=== PATIENT | female | born 1960 | race Two or more races ===

== ENCOUNTER → 2020-05-18 | Outpatient (CLI) | payer SELFPAY | END | disposition home or self-care (01) | LOC: LABWHC1 16:06 | PROVIDERS: ATTEND Emergency Medicine | DX: Z20.822 Contact with and (suspected) exposure to COVID-19 (principal) | CPT/HCPCS: U0003; C9803 ==

== ENCOUNTER → 2020-06-13 | Outpatient (CLI) | payer SELFPAY | END | disposition home or self-care (01) | LOC: LABWHC1 17:14 | PROVIDERS: ATTEND Emergency Medicine | DX: Z20.822 Contact with and (suspected) exposure to COVID-19 (principal) | CPT/HCPCS: U0003; C9803 ==

== ENCOUNTER 2023-10-09 04:17 | Observation (INO) | payer BC ==
[2023-10-09] MEDS: SODIUM CHLORIDE 0.9% 1,000 ML IV STA (04:46)
[2023-10-09] MEDS: MECLIZINE 12.5 MG TAB PO STA (04:46)
--- NOTE | 2023-10-09 04:59 | ED ---
General Adult HPI - General Chief complaint: Dizziness Stated complaint: Dizziness Time Seen by Provider: 10/09/23 04:21 Source: patient, EMS, RN notes reviewed, old records reviewed Mode of arrival: EMS Limitations: no limitations - History of Present Illness Initial comments: Patient is a 62-year-old female who presents emergency department complaining of dizziness. States she awoke from sleeping with room spinning sensation. Had a hard time ambulating at home which is why she called 911. Idabel nauseous with it. No headaches. No chest pain or shortness of breath. Has a history of hypertension hyperlipidemia. Was given Zofran by EMS which helped with the nausea but she is still complaining of a room spinning sensation. States it is somewhat improved when she is lying down flat. Denies any current nausea or vomiting. Denies chest pain, shortness of breath, abdominal pain. Denies any headaches or visual changes. No other acute complaints at this time. Presents for further evaluation. - Related Data Allergies Allergy/AdvReac Type Severity Reaction Status Date / Time No Known Allergies Allergy Verified 10/09/23 04:30 Review of Systems ROS Statement: Those systems with pertinent positive or pertinent negative responses have been documented in the HPI. Review of Systems: CONST: Denies fever EYES: Denies blurry vision ENT: Denies nasal congestion C/V: Denies Chest pain RESP: Denies shortness of breath GI: Denies abdominal pain : Denies dysuria SKIN: Denies rash. MSK: Denies joint pain. NEURO: Endorses dizziness ROS Other: All systems not noted in ROS Statement are negative. Past Medical History Past Medical History: Hyperlipidemia, Hypertension Past Surgical History: Tonsillectomy Smoking Status: Never smoker Past Alcohol Use History: None Reported Past Drug Use History: None Reported General Exam - General Exam Comments Initial Comments: General: Appears in no acute distress. HEAD: Normal with no signs of head trauma. EYES: PERRLA, EOMI, conjunctiva normal, no discharge. Possible slight horizontal nystagmus present but nothing substantial. ENT: Hearing grossly intact, normal oropharynx. RESPIRATORY: Clear breath sounds bilaterally. No wheezes, rales, or rhonchi. C/V: Regular rate and rhythm. S1 and S2 auscultated, no edema, peripheral pulses 2+ and intact throughout ABD: Abd is soft, nontender, nondistended EXT: Normal range of motion, no obvious deformity SKIN: No rashes or lesions observed on exposed skin. NEURO: Alert and oriented x 4. Cranial nerves II-XII intact. No focal sensory or strength deficits. NIH of 0. Cerebellar function within acceptable limits and intact as evident by normal finger-nose testing, normal [id number] testing, and absence of dysdiadochokinesia. GCS of 15. Limitations: no limitations Course Vital Signs 10/09/23 10/09/23 10/09/23 04:20 05:30 06:00 Temperature 98.0 F Pulse Rate 74 84 79 Respiratory 16 16 16 Rate Blood Pressure 155/73 171/85 150/79 O2 Sat by Pulse 95 95 96 Oximetry Medical Decision Making - Medical Decision Making Was pt. sent in by a medical professional or institution (, PA, [employer] [facility], urgent care, hospital, or fdc...) When possible be specific @ -No Did you speak to anyone other than the patient for history (EMS, parent, family, police, friend...)? What history was obtained from this source @ -No Did you review nursing and triage notes (agree or disagree)? Why? @ -I reviewed and agree with nursing and triage notes Were old charts reviewed (outside hosp., previous admission, EMS record, old EKG, old radiological studies, urgent care reports/EKG's, fdc records)? Report findings @ -No old charts were reviewed Differential Diagnosis (chest pain, altered mental status, abdominal pain women, abdominal pain men, vaginal bleeding, weakness, fever, dyspnea, syncope, headache, dizziness, GI bleed, back pain, seizure, CVA, palpatations, mental health, musculoskeletal)? @ -Differential Dizziness: Benign paroxysmal positional Vertigo, Menieres disease, otitis media, acoustic neuroma, vertebrobasilar insufficiency, cerebellar stroke, encephalitis, hypovol emic, arrhythmia, coronary artery syndrome, anemia, this is not meant to be an all-inclusive list EKG interpreted by me (3pts min.). @ -As above X-rays interpreted by me (1pt min.). @ -Chest x-ray reveals no obvious acute cardiopulmonary process. CT interpreted by me (1pt min.). @ -CT brain reveals no obvious acute process. CT angiogram of the head and neck reveals no obvious acute intracranial significant stenosis or occlusion. Patient's CT angiogram of the neck does reveal significant 60% stenosis of the left internal carotid artery. Likely secondary to plaque. U/S interpreted by me (1pt. min.). @ -None done What testing was considered but not performed or refused? (CT, X-rays, U/S, labs)? Why? @ -None What meds were considered but not given or refused? Why? @ -None Did you discuss the management of the patient with other professionals (professionals i.e. DrNohemi, PA, [employer] RAS[employer], lab, RT, psych nurse, geriatric social work professor, solar energy systems designer, teacher, patient safety officer, lead case manager)? Give summary @ -Discussed with ALVARADO Basurto of [facility] who accepted the admission. Was smoking cessation discussed for >3mins.? @ -No Was critical care preformed (if so, how long)? @ -No Were there social determinants of health that impacted care today? How? (Homelessness, low income, unemployed, alcoholism, drug addiction, transportation, low edu. Level, literacy, decrease access to med. care, skilled nursing, rehab)? @ -No Was there de-escalation of care discussed even if they declined (Discuss DNR or withdrawal of care, Hospice)? DNR status @ -No What co-morbidities impacted this encounter? (DM, HTN, Smoking, COPD, CAD, Ca ncer, CVA, ARF, Chemo, Hep., AIDS, mental health diagnosis, sleep apnea, morbid obesity)? @ -None Was patient admitted / discharged? Hospital course, mention meds given and route, prescriptions, significant lab abnormalities, going to OR and other pertinent info. @ -Based on patient's presentation and physical exam, presents with vertigo- like symptoms. We will obtain CT imaging of the brain. She has no other obvious deficits at this time. NIH of 0. Will obtain basic labs as well as screening EKG. Patient in agreement this plan. She will be symptomatically treat with IV fluids as well as meclizine. Vital signs are within acceptable limits. EKG shows no signs of acute ischemia.Patient's imaging returned unremarkable for obvious stroke. Patient does have significant stenosis of the left internal carotid artery of 60%. Remainder the imaging unremarkable. Patient's laboratory studies are also unremarkable. Patient required additional medications, Reglan and Benadryl. On reevaluation, patient's vertigo is improved however still not fully gone. I did recommend admission at this time. She was in agreement this plan. Neurology consulted for the intractable vertigo. Patient was given a 325 mg dose of aspirin. I also consulted vascular surgery regarding the carotid steno sis. I spoke with the admitting team, ALVARADO Basurto of [facility] who is covering for Dr. Ortiz who would normally admit this patient who accepts the admission. Undiagnosed new problem with uncertain prognosis? @ -No Drug Therapy requiring intensive monitoring for toxicity (Heparin, Nitro, Insulin, Cardizem)? @ -No Were any procedures done? @ -No Diagnosis/symptom? @ -Intractable vertigo, carotid artery stenosis Acute, or Chronic, or Acute on Chronic? @ -Acute Uncomplicated (without systemic symptoms) or Complicated (systemic symptoms)? @ -Complicated Side effects of treatment? @ -None Exacerbation, Progression, or Severe Exacerbation] @ -No Poses a threat to life or bodily function? @ -Potentially, yes - Lab Data Result diagrams: 10/09/23 05:35 10/09/23 05:35 Lab Results 10/09/23 10/09/23 10/09/23 Range/Units 05:35 05:35 05:35 WBC 10.1 (3.8-10.6) k/uL RBC 4.53 (3.80-5.40) m/uL Hgb 13.9 (11.4-16.0) gm/dL Hct 43.5 (34.0-46.0) % MCV 95.9 (80.0-100.0) fL MCH 30.6 (25.0-35.0) pg MCHC 31.9 (31.0-37.0) g/dL RDW 13.0 (11.5-15.5) % Plt Count 229 (150-450) k/uL MPV 7.5 Neutrophils % 74 % Lymphocytes % 15 % Monocytes % 6 % Eosinophils % 3 % Basophils % 0 % Neutrophils # 7.5 (1.3-7.7) k/uL Lymphocytes # 1.5 (1.0-4.8) k/uL Monocytes # 0.6 (0-1.0) k/uL Eosinophils # 0.3 (0-0.7) k/uL Basophils # 0.0 (0-0.2) k/uL Sodium 136 L (137-145) mmol/L Potassium 4.2 (3.5-5.1) mmol/L Chloride 107 (98-107) mmol/L Carbon Dioxide 21 L (22-30) mmol/L Anion Gap 8 mmol/L BUN 24 H (7-17) mg/dL Creatinine 0.81 (0.52-1.04) mg/dL Est GFR (CKD-EPI)AfAm 89 (>60 ml/min/1.73 sqM) Est GFR (CKD-EPI)NonAf 78 (>60 ml/min/1.73 sqM) Glucose 183 H (74-99) mg/dL Plasma Lactic Acid Oscar 1.4 (0.7-2.0) mmol/L Calcium 9.0 (8.4-10.2) mg/dL Total Bilirubin 0.4 (0.2-1.3) mg/dL AST 23 (14-36) U/L ALT 18 (4-34) U/L Alkaline Phosphatase 105 (38-126) U/L Troponin I (0.000-0.034) ng/mL Total Protein 6.6 (6.3-8.2) g/dL Albumin 4.0 (3.5-5.0) g/dL 10/09/23 Range/Units 05:35 WBC (3.8-10.6) k/uL RBC (3.80-5.40) m/uL Hgb (11.4-16.0) gm/dL Hct (34.0-46.0) % MCV (80.0-100.0) fL MCH (25.0-35.0) pg MCHC (31.0-37.0) g/dL RDW (11.5-15.5) % Plt Count (150-450) k/uL MPV Neutrophils % % Lymphocytes % % Monocytes % % Eosinophils % % Basophils % % Neutrophils # (1.3-7.7) k/uL Lymphocytes # (1.0-4.8) k/uL Monocytes # (0-1.0) k/uL Eosinophils # (0-0.7) k/uL Basophils # (0-0.2) k/uL Sodium (137-145) mmol/L Potassium (3.5-5.1) mmol/L Chloride (98-107) mmol/L Carbon Dioxide (22-30) mmol/L Anion Gap mmol/L BUN (7-17) mg/dL Creatinine (0.52-1.04) mg/dL Est GFR (CKD-EPI)AfAm (>60 ml/min/1.73 sqM) Est GFR (CKD-EPI)NonAf (>60 ml/min/1.73 sqM) Glucose (74-99) mg/dL Plasma Lactic Acid Oscar (0.7-2.0) mmol/L Calcium (8.4-10.2) mg/dL Total Bilirubin (0.2-1.3) mg/dL AST (14-36) U/L ALT (4-34) U/L Alkaline Phosphatase (38-126) U/L Troponin I <0.012 (0.000-0.034) ng/mL Total Protein (6.3-8.2) g/dL Albumin (3.5-5.0) g/dL - EKG Data -: EKG Interpreted by Me EKG Comments: 12-lead Electrocardiogram Interpretation Note EKG was reviewed and interpreted by myself. 12-lead ECG performed at 0429 is interpreted by me as revealing normal sinus rhythm at a rate of 73 beats per minute. [place] is normal. MD interval is 64 ms, QRS duration 56 ms, QTc is 386 ms.. There were no ST or T wave abnormalities to suggest myocardial ischemia or injury. R wave progression across the precordium was satisfactory. By my interpretation this EKG is non-diagnostic for acute ischemia. Disposition Clinical Impression: Vertigo, Carotid artery stenosis Disposition: ADMITTED IP TO THIS HOSP Condition: Stable Referrals: Rula Fischer MD [Primary Care Provider] - 1-2 days Time of Disposition: 06:37
[2023-10-09] MEDS: METOCLOPRAMIDE 5 MG/ML 2 ML VIAL IVP STA (05:09)
[2023-10-09] MEDS: diphenhydrAMINE 50 MG/ML 1 ML VIAL IVP STA (05:10)
--- NOTE | 2023-10-09 05:12 | XR ---
EXAMINATION TYPE: XR chest 1V portable DATE OF EXAM: 10/09/2023 COMPARISON: NONE HISTORY: Dizziness TECHNIQUE: Single frontal view of the chest is obtained. FINDINGS: There is no focal air space opacity, pleural effusion, or pneumothorax seen. The cardiac silhouette size is mildly enlarged. Overlying EKG leads are present. The osseous structures are int act. IMPRESSION: Mild cardiomegaly without acute pulmonary process.
--- NOTE | 2023-10-09 05:14 | CT ---
EXAMINATION TYPE: CT brain wo con DATE OF EXAM: 10/09/2023 HISTORY: pt arrives to ED from home for c/o dizziness, N/N increased w/ movement and photophobic onse t 3am. pt states it feels like the room is spinning. pt reports heart hx but unsure what. H/O HTN. Ve rtigo. CT DLP: 1186 mGycm. Automated Exposure Control for Dose Reduction was Utilized. TECHNIQUE: CT scan of the head is performed without contrast. COMPARISON: None. FINDINGS: There is no acute intracranial hemorrhage or midline shift identified. There is mild to m oderate diffuse ventricular and sulcal prominence consistent with diffuse age-related cerebral atroph y. 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 The globes are intact and the visualized p aranasal sinuses are clear. No suspicious opacification of the mastoid air cells is seen. IMPRESSION: No acute intracranial hemorrhage or midline shift.
[2023-10-09 05:51] LABS: Basophils % (A) 0 %; Eosinophils # (A) 0.3 k/uL (0-0.7); Eosinophils % (A) 3 %; HCT 43.5 % (34.0-46.0); HGB 13.9 gm/dL (11.4-16.0); Lymphocytes # (A) 1.5 k/uL (1.0-4.8); Lymphocytes % (A) 15 %; MCH 30.6 pg (25.0-35.0); MCHC 31.9 g/dL (31.0-37.0); MCV 95.9 fL (80.0-100.0); Mean Platelet Volume 7.5; Monocytes # (A) 0.6 k/uL (0-1.0); Monocytes % (A) 6 %; Neutrophils # (A) 7.5 k/uL (1.3-7.7); Neutrophils % (A) 74 %; Platelet Count 229 k/uL (150-450); RBC 4.53 m/uL (3.80-5.40); WBC 10.1 k/uL (3.8-10.6)
[2023-10-09 06:08] LABS: INR 0.8 (<1.2); Prothrombin Time 9.6 sec (10.0-12.5)
--- NOTE | 2023-10-09 06:09 | CT ---
EXAMINATION TYPE: CT angio head neck DATE OF EXAM: 10/09/2023 HISTORY: pt arrives to ED from home for c/o dizziness, N/N increased w/ movement and photophobic onse t 3am. pt states it feels like the room is spinning. pt reports heart hx but unsure what. H/O HTN COMPARISON: None. CT DLP: 1500 mGycm. Automated Exposure Control for Dose Reduction was Utilized. TECHNIQUE: CTA scan of the head and neck is performed with IV Contrast, patient injected with 65 mL of Isovue 370, axial images are obtained, coronal and sagittal reformatted images are reviewed. 3D re constructed images are created on an independent workstation and reviewed. FINDINGS: Carotid/Vascular Structures: Mild peripheral calcified plaque in the aortic arch. Moderate peripheral calcified plaque right carotid bulb extends into proximal internal carotid artery without greater th an 50% stenosis. Moderate to severe mixed plaque left carotid bulb extending into proximal left inter nal carotid artery with significant stenosis. Lumen diameter narrowed to 2.4 mm on image 340. There i s reconstitution to 6.0 mm superior to this point on image 440. Codominant vertebral arteries patent to the basilar junction. Patent bilateral posterior communicating arteries are seen. No large vessel occlusion or aneurysm in the posterior circulation. Patent anterior communicating artery. No large ve ssel occlusion or aneurysm in the anterior circulation. Other: No significant incidental finding. IMPRESSION: Hemodynamic significant stenosis proximal internal carotid artery with estimated 60% diam eter narrowing and overall diminished flow in the left internal carotid artery versus opposite right side. No aneurysm or large vessel occlusion at level of [place] of [place]. NASCET criteria was used in interpretation of this exam?
[2023-10-09 06:21] LABS: ALT 18 U/L (4-34); AST 23 U/L (14-36); African American GFR (CKD) 89 (>60 ml/min/1.73 sqM); Alkaline Phosphatase 105 U/L (38-126); Anion Gap 8 mmol/L; Blood Urea Nitrogen 24 mg/dL (7-17); Carbon Dioxide 21 mmol/L (22-30); Chloride 107 mmol/L (98-107); Glucose 183 mg/dL (74-99); Non-African American GFR(CKD) 78 (>60 ml/min/1.73 sqM); Potassium 4.2 mmol/L (3.5-5.1); Sodium 136 mmol/L (137-145); Total Bilirubin 0.4 mg/dL (0.2-1.3); Total Protein 6.6 g/dL (6.3-8.2)
[2023-10-09] MEDS ORDERED: MECLIZINE 25 MG TAB PO PRN (06:31)
[2023-10-09] MEDS ORDERED: ONDANSETRON 4 MG/2 ML VIAL IVP PRN (06:32)
[2023-10-09] MEDS ORDERED: NALOXONE 0.4 MG/ML 1 ML VIAL IV PRN (06:32)
[2023-10-09 06:50] LABS: Partial Thromboplastin Time 21.1 sec (22.0-30.0)
[2023-10-09] MEDS: ASPIRIN 325 MG TAB PO STA (06:52)
[2023-10-09] MEDS: SODIUM CHLORIDE 0.9% 1,000 ML IV SCH (06:55)
[2023-10-09] MEDS: PANTOPRAZOLE 40 MG/10 ML VIAL IV SCH (08:21)
[2023-10-09] MEDS: HEPARIN SODIUM,PORCINE 5,000 UNIT/ML 1 ML VIAL SQ SCH (08:27)
[2023-10-09 08:37] LABS: Appearance,Urine Clear (Clear); Bilirubin,Urine Negative (Negative); Blood,Urine Negative (Negative); Color,Urine Colorless; Glucose,Urine (UA) 4+ (Negative); Ketones,Urine Negative (Negative); Leukocyte Esterase,Urine Negative (Negative); Nitrite,Urine Negative (Negative); PH, Urine 6.5 (5.0-8.0); Protein,Urine Negative (Negative); Urobilinogen,Urine <2.0 mg/dL (<2.0)
--- NOTE | 2023-10-09 10:27 | P.GSCN ---
History of Present Illness Consult date: 10/09/23 Reason for Consult: Carotid stenosis Requesting physician: Aba Herrera History of present illness: This is a pleasant 62-year-old female who presented to the emergency department yesterday by EMS after calling 911 because she was dizzy and the room felt like spinning. She had gotten up and she was having difficulty walking due to the spinning sensation. She was brought into the emergency department for further evaluation. She had a CT of the head which was normal and CT angiogram head and neck which reported 60% stenosis of the left ICA and therefore vascular surgery was consulted. Past medical history includes hyperlipidemia and hypertension. She is a non-smoker. She denied any other focal deficits such as vision loss or vision changes, difficulty speaking, upper or lower extremity weakness. States symptoms have improved and she is feeling much better today. States that she was unsure if symptoms were worse with position change that she did not pay much attention, but symptoms are resolved at this time. No complaints of any focal deficits. Review of Systems A 14 point review systems was completed all pertinent positives and negatives as stated in the HPI. Past Medical History Past Medical History: Hyperlipidemia, Hypertension Past Surgical History: Tonsillectomy Smoking Status: Never smoker Past Alcohol Use History: None Reported Past Drug Use History: None Reported Medications and Allergies Home Medications Medication Instructions Recorded Confirmed Type Aspirin EC [Ecotrin Low Dose] 81 mg PO DAILY 10/09/23 10/09/23 History Atorvastatin Calcium [Lipitor] 40 mg PO DAILY 10/09/23 10/09/23 History Dapagliflozin Propanediol [Farxiga] 10 mg PO DAILY 10/09/23 10/09/23 History Furosemide [Lasix] 20 mg PO DAILY 10/09/23 10/09/23 History Sacubitril/Valsartan [Entresto 24 1 tab PO BID 10/09/23 10/09/23 History mg-26 mg Tablet] Spironolactone [Aldactone] 25 mg PO DAILY 10/09/23 10/09/23 History carvediloL [Coreg] 6.25 mg PO BID 10/09/23 10/09/23 History hydrALAZINE HCL [Apresoline] 100 mg PO BID 10/09/23 10/09/23 History Allergies Allergy/AdvReac Type Severity Reaction Status Date / Time No Known Allergies Allergy Verified 10/09/23 08:14 Surgical - Exam Vital Signs Temp Pulse Resp BP Pulse Ox 98.0 F 74 16 155/73 95 10/09/23 04:20 10/09/23 04:20 10/09/23 04:20 10/09/23 04:20 10/09/23 04:20 General appearance: The patient is alert, oriented, appears in no acute distress. HET: Head is normocephalic and atraumatic. Pupils are equal and reactive. Neck: Supple. No carotid bruit bilaterally. Heart: Regular. Lungs: Equal expansion, normal respiratory effort. Abdomen: Soft, nontender, nondistended. Extremities: Normal skin color and turgor. Neurological: No focal deficits. Strength and sensation are grossly intact. Results - Labs 10/09/23 05:35 10/09/23 05:35 Abnormal Lab Results - Last 24 Hours (Table) 10/09/23 10/09/23 10/09/23 Range/Units 05:35 05:35 08:27 PT 9.6 L (10.0-12.5) sec APTT 21.1 L (22.0-30.0) sec Sodium 136 L (137-145) mmol/L Carbon Dioxide 21 L (22-30) mmol/L BUN 24 H (7-17) mg/dL Glucose 183 H (74-99) mg/dL Urine Glucose (UA) 4+ H (Negative) Diabetes panel 10/09/23 Range/Units 05:35 Sodium 136 L (137-145) mmol/L Potassium 4.2 (3.5-5.1) mmol/L Chloride 107 (98-107) mmol/L Carbon Dioxide 21 L (22-30) mmol/L BUN 24 H (7-17) mg/dL Creatinine 0.81 (0.52-1.04) mg/dL Glucose 183 H (74-99) mg/dL Calcium 9.0 (8.4-10.2) mg/dL AST 23 (14-36) U/L ALT 18 (4-34) U/L Alkaline Phosphatase 105 (38-126) U/L Total Protein 6.6 (6.3-8.2) g/dL Albumin 4.0 (3.5-5.0) g/dL Calcium panel 10/09/23 Range/Units 05:35 Calcium 9.0 (8.4-10.2) mg/dL Albumin 4.0 (3.5-5.0) g/dL Pituitary panel 10/09/23 Range/Units 05:35 Sodium 136 L (137-145) mmol/L Potassium 4.2 (3.5-5.1) mmol/L Chloride 107 (98-107) mmol/L Carbon Dioxide 21 L (22-30) mmol/L BUN 24 H (7-17) mg/dL Creatinine 0.81 (0.52-1.04) mg/dL Glucose 183 H (74-99) mg/dL Calcium 9.0 (8.4-10.2) mg/dL Adrenal panel 10/09/23 Range/Units 05:35 Sodium 136 L (137-145) mmol/L Potassium 4.2 (3.5-5.1) mmol/L Chloride 107 (98-107) mmol/L Carbon Dioxide 21 L (22-30) mmol/L BUN 24 H (7-17) mg/dL Creatinine 0.81 (0.52-1.04) mg/dL Glucose 183 H (74-99) mg/dL Calcium 9.0 (8.4-10.2) mg/dL Total Bilirubin 0.4 (0.2-1.3) mg/dL AST 23 (14-36) U/L ALT 18 (4-34) U/L Alkaline Phosphatase 105 (38-126) U/L Total Protein 6.6 (6.3-8.2) g/dL Albumin 4.0 (3.5-5.0) g/dL - Imaging Comments: CT angiogram head and neck impression reports hemodynamic significant stenosis proximal internal carotid artery with estimated 60% diameter narrowing and overall diminished flow in the left internal carotid artery versus opposite right side. No aneurysm or large vessel occlusion at the level of the [place] of [place]. Right carotid artery reported in body as without greater than 50% stenosis. Right CT brain without contrast reports no acute intracranial hemorrhage or mi dline shift Assessment and Plan Assessment: 1. Vertigo 2. Asymptomatic left internal carotid artery stenosis 3. Hyperlipidemia 4. Hypertension Plan: 1. Continue symptomatic and supportive care 2. There is no indication for any vascular surgical intervention and ICA stenosis likely not cause of symptoms 3. Continue with recommendations from neurology 4. Rest of medical management per primary medical team Thank you for this consultation, we will sign off at this time. Patient can follow-up with vascular surgery in outpatient setting for carotid surveillance. The impression and plan of care has been dictated as directed. Dr. Lozano I performed a history and examination of this patient, discussed the same with the dictator. I agree with the dictator's note ,documented as a scribe. Any additional findings or plans will be noted.
--- NOTE | 2023-10-09 10:45 | P.CNNES ---
History of Present Illness Consult date: 10/09/23 Requesting physician: Aba Herrera Reason for Consult: intractable vertigo History of Present Illness: This is a 62-year-old woman who presented emergency department because of dizziness. Patient is a poor historian. Patient stated that she woke up today around 3:00 in the morning and she felt dizzy but she could not describe dizziness and she felt the dizziness is at rest and with position. Initially she stated that it got worse with movement but the later she stated no was about the same. She did have nausea early on but no vomiting. Denies any ringing in the ears or hearing loss. Denies any visual disturbance. Denies any focal weakness or numbness or difficulty swallowing. Her last normal state was just shy of 10 PM last night and she was doing well. She denies any history of stroke or TIA. She stated that she had pneumonia towards the end of July 2023 and was placed on antibiotic. Otherwise no further infection. Denies any head trauma. Denies any falls. She is on aspirin 81 mg daily. The patient feels her dizziness is better and her nausea is better compared to initial presentation. Some of the workup during this hospital visit consisted of: Patient is afebrile. CBC with differential is unremarkable Glucose is 183, plasma lactic acid vein is 1.4 Sodium is 136, calcium is 9.0. CT of the head is reported as no acute intracranial hemorrhage or midline shift. In the body of the report it is mentioned the patient has old infarct in the left parietal lobe. I personally reviewed the CT and agree with the report. CT angiography of the head and neck is reported as hemodynamically significant stenosis proximal ICA with estimated 60% diameter and narrowing and overall diminished flow in the left left ICA versus opposite right side. No aneurysm or large vessel occlusion at the level of wellness. In the body with the report is mentioned that moderate to severe plaque left carotid bulb extends into the proximal left internal carotid artery with significant stenosis. Review of Systems The positive and negative as per HPI. Past Medical History Past Medical History: Hyperlipidemia, Hypertension Past Surgical History: Tonsillectomy Smoking Status: Never smoker Past Alcohol Use History: None Reported Past Drug Use History: None Reported Medications and Allergies Home Medications Medication Instructions Recorded Confirmed Type Aspirin EC [Ecotrin Low Dose] 81 mg PO DAILY 10/09/23 10/09/23 History Atorvastatin Calcium [Lipitor] 40 mg PO DAILY 10/09/23 10/09/23 History Dapagliflozin Propanediol [Farxiga] 10 mg PO DAILY 10/09/23 10/09/23 History Furosemide [Lasix] 20 mg PO DAILY 10/09/23 10/09/23 History Sacubitril/Valsartan [Entresto 24 1 tab PO BID 10/09/23 10/09/23 History mg-26 mg Tablet] Spironolactone [Aldactone] 25 mg PO DAILY 10/09/23 10/09/23 History carvediloL [Coreg] 6.25 mg PO BID 10/09/23 10/09/23 History hydrALAZINE HCL [Apresoline] 100 mg PO BID 10/09/23 10/09/23 History Allergies Allergy/AdvReac Type Severity Reaction Status Date / Time No Known Allergies Allergy Verified 10/09/23 08:14 Physical Examination - Vital Signs Vital Signs: Vital Signs Temp Pulse Resp BP Pulse Ox 10/09/23 09:38 65 16 123/55 96 10/09/23 08:00 80 16 140/73 95 10/09/23 06:00 79 16 150/79 96 10/09/23 05:30 84 16 171/85 95 10/09/23 04:20 98.0 F 74 16 155/73 95 Intake and Output 10/08/23 10/09/23 10/09/23 22:59 06:59 14:59 Other: Weight 81.647 kg GENERAL: The patient is lying in bed and is not in acute distress. NEUROLOGICAL: Higher mental function: The patient is awake, alert, oriented to self, place and time. Patient is following commands. No aphasia and no neglect. Cranial nerves: The pupils are round, equal and reactive to light and accommodation. Visual butler are full to confrontation throughout. Extraocular movement is intact no nystagmus is noted. Facial sensation is normal to touch throughout. The facial strength is normal throughout. Hearing is moderately decreased bilaterally to hand rub. Tongue is midline and moved [id number] without any difficulty. No dysarthria is noted. Shoulder shrug is normal bilaterally. Motor: Gait is attempted but patient was dizzy upon sitting up and so unable to perform. The strength is 5 over 5 throughout. Normal tone and bulk. Cerebellum: Normal finger to nose heel to mari bilaterally. Sensation: Sensation is normal to touch throughout. Reflexes (right/left): 2+ throughout. Plantars are downgoing bilaterally. Results - Laboratory Findings CBC and BMP: 10/09/23 05:35 10/09/23 05:35 Abnormal Lab Findings: Abnormal Labs 10/09/23 10/09/23 10/09/23 05:35 05:35 08:27 PT 9.6 L APTT 21.1 L Sodium 136 L Carbon Dioxide 21 L BUN 24 H Glucose 183 H Urine Glucose (UA) 4+ H Assessment and Plan Assessment: This is a 62-year-old woman who presents to the hospital because of dizziness upon waking up at 3:00 in the morning and last normal was about close to 10 PM yesterday. He also had nausea. She had a recent pneumonia and received antibiotic in July 2023. She feels her nausea and dizziness is somewhat better compared to initial presentation. CT of the head is negative for any acute or subacute stroke. CT angiography shows severe left ICA/ carotid bulb artery stenosis Acute vertigo: Probable peripheral. Rule out central cause (stroke) Severe left ICA/ carotid bulb artery stenosis on CTA Old stroke on the left parietal on CT head. Patient is now aware of history of stroke. Underlying history of hypertension Hyperlipidemia Plan: Spoke with ED physician proceed with MRI of the brain with and without to rule out any central cause Patient was given aspirin 325 mg once in the ED. I resumed her home dose of aspirin 81 mg daily. I started the patient on Lipitor 80 mg nightly because of her left carotid stenosis/plaque. She received meclizine 25 mg once as well as Reglan 5 mg and IV fluids. She started on 25 mg of meclizine 3 times daily as needed and I change it to scheduled and to be on it for 7 days and after that as needed I ordered 2D echo, lipid panel Vascular surgery team is consulted for the left ICA stenosis Consulted PT and OT Will defer the rest of the medical management to primary and other specialist DVT prophylaxis the patient is on subcu heparin Plan discussed with the patient, ED physician and vascular surgery team Thank for the consultation Time with Patient: Greater than 30
--- NOTE | 2023-10-09 13:50 | P.HPIM ---
History of Present Illness H&P Date: 10/09/23 This is a 62-year-old female who presented to the emergency department via EMS as patient woke up at 3 AM this morning and reported feeling extremely dizzy like she was going to pass out. Patient reports she follows with Rula Fischer in the outpatient setting with a past medical history of hyperlipidemia and hypertension. Patient denies any recent sick contacts or feeling sick other than approximately 1 month ago she was on some antibiotics with concerns of a possible pneumonia from her primary care provider and she also reports to being hospitalized for 2 days as she was dehydrated. Patient denies any recent nausea vomiting or diarrhea. Patient was given Antivert in the ER and started on Antivert and admitted under observation for neurology evaluation. Patient also underwent CT angio of the head and neck showing hemodynamic significant stenosis of the proximal internal carotid artery with estimated 60% dynamic narrowing and overall diminished flow of the left internal artery with opposite right side diminished flow. Vascular surgery was also consulted and currently pending at this time. Neurology evaluated the patient early this morning recommending an MRI which is pending for today. Patient reports to feeling improved and would like to go home. Will discuss with neurology and await MRI to discuss discharge planning. Labs reviewed and within normal limits, including troponin was 0.012, sodium 136 with a potassium of 4.2, creatinine 0.81. Patient reports to being compliant with medications and has not recently started any new medications. REVIEW OF SYSTEMS: CONSTITUTIONAL: No fever, no malaise, no fatigue. HEENT: No recent visual problems or hearing problems. Denied any sore throat. CARDIOVASCULAR: No chest pain, orthopnea, PND, no palpitations, no syncope. PULMONARY: No shortness of breath, no cough, no hemoptysis. GASTROINTESTINAL: No diarrhea, no nausea, no vomiting, no abdominal pain. NEUROLOGICAL: No headaches, no weakness, no numbness. Reported extreme dizziness that has resolved HEMATOLOGICAL: Denies any bleeding or petechiae. GENITOURINARY: Denies any burning micturition, frequency, or urgency. MUSCULOSKELETAL/RHEUMATOLOGICAL: Denies any joint pain, swelling, or any muscle pain. ENDOCRINE: Denies any polyuria or polydipsia. The rest of the 14-point review of systems is negative. PHYSICAL EXAMINATION: GENERAL: The patient is alert and oriented x3, not in any acute distress. Well developed, well nourished. Elderly appearing, obese HEENT: Pupils are round and equally reacting to light. EOMI. No scleral icterus. No conjunctival pallor. Normocephalic, atraumatic. No pharyngeal erythema. No thyromegaly. CARDIOVASCULAR: S1 and S2 present. No murmurs, rubs, or gallops. PULMONARY: Chest is clear to auscultation, no wheezing or crackles. ABDOMEN: Soft, obese, nontender, nondistended, normoactive bowel sounds. No pal pable organomegaly. MUSCULOSKELETAL: No joint swelling or deformity. EXTREMITIES: No cyanosis, clubbing, or pedal edema. NEUROLOGICAL: Gross neurological examination did not reveal any focal deficits. SKIN: No rashes. Assessment: Dizziness with concerns of possible BPPV History of hypertension Hyperlipidemia Obesity with a BMI of 30.9 Significant stenosis of the proximal internal carotid artery with estimated 60% on CT angio, asymptomatic, evaluated by vascular recommending outpatient follow- up GI prophylaxis DVT prophylaxis Full code Plan: Patient evaluated by neurology currently awaiting to undergo an MRI of the brain and also underwent CT angio as mentioned previously and was evaluated by vascular surgery recommending outpatient follow-up with no immediate surgical intervention at this time Home medications reviewed and resumed as appropriate Patient to continue on meclizine 3 times daily and outpatient follow-up with neurology Patient maintained on gentle IV hydration and labs are within normal limits. Discussed with nursing staff about getting the patient up and walking more frequently Await MRI and discuss further with neurology regarding discharge planning. Patient reports she feels improved and would like to go home. Possible discharge later today if MRI is negative. The impression and plan of care has been dictated by Nurse Jazmni Cleary ctitioner as directed. Dr. Sarita MD I have performed a history and examination and MDM of this patient, discussed the same with the dictator, and agree with the dictator's assessment and plan as written ,documented as a scribe. Based on total visit time, I have performed more than 50% of the visit. Past Medical History Past Medical History: Hyperlipidemia, Hypertension Past Surgical History: Tonsillectomy Smoking Status: Never smoker Past Alcohol Use History: None Reported Past Drug Use History: None Reported Medications and Allergies Home Medications Medication Instructions Recorded Confirmed Type Aspirin EC [Ecotrin Low Dose] 81 mg PO DAILY 10/09/23 10/09/23 History Atorvastatin Calcium [Lipitor] 40 mg PO DAILY 10/09/23 10/09/23 History Dapagliflozin Propanediol [Farxiga] 10 mg PO DAILY 10/09/23 10/09/23 History Furosemide [Lasix] 20 mg PO DAILY 10/09/23 10/09/23 History Sacubitril/Valsartan [Entresto 24 1 tab PO BID 10/09/23 10/09/23 History mg-26 mg Tablet] Spironolactone [Aldactone] 25 mg PO DAILY 10/09/23 10/09/23 History carvediloL [Coreg] 6.25 mg PO BID 10/09/23 10/09/23 History hydrALAZINE HCL [Apresoline] 100 mg PO BID 10/09/23 10/09/23 History Allergies Allergy/AdvReac Type Severity Reaction Status Date / Time No Known Allergies Allergy Verified 10/09/23 08:14 Physical Exam Vitals: Vital Signs Temp Pulse Resp BP Pulse Ox 10/09/23 09:38 65 16 123/55 96 10/09/23 08:00 80 16 140/73 95 10/09/23 06:00 79 16 150/79 96 10/09/23 05:30 84 16 171/85 95 10/09/23 04:20 98.0 F 74 16 155/73 95 Intake and Output 10/08/23 10/09/23 10/09/23 22:59 06:59 14:59 Other: Weight 81.647 kg Results CBC & Chem 7: 10/09/23 05:35 10/09/23 05:35 Labs: Abnormal Lab Results - Last 24 Hours (Table) 10/09/23 10/09/23 10/09/23 Range/Units 05:35 05:35 08:27 PT 9.6 L (10.0-12.5) sec APTT 21.1 L (22.0-30.0) sec Sodium 136 L (137-145) mmol/L Carbon Dioxide 21 L (22-30) mmol/L BUN 24 H (7-17) mg/dL Glucose 183 H (74-99) mg/dL Urine Glucose (UA) 4+ H (Negative) Thrombosis Risk Factor Assmnt - DVT/VTE Prophylaxis DVT/VTE Prophylaxis: Pharmacologic Prophylaxis ordered Assessment and Plan Time with Patient: Greater than 30
[2023-10-09] MEDS: MECLIZINE 25 MG TAB PO SCH (16:37)
[2023-10-09 17:14] LABS: Chol/HDL Ratio 3.11 Ratio; LDL Cholesterol,Calculated 55.1 mg/dL (0.0-131.0)
--- NOTE | 2023-10-09 18:50 | MR ---
EXAMINATION TYPE: MR brain wo/w con DATE OF EXAM: 10/09/2023 COMPARISON: CT 10/09/2023 HISTORY: Vertigo. CONTRAST: Performed utilizing 9 mL intravenous Gadavist gadolinium contrast. TECHNIQUE: Multiplanar, multiecho imaging on a 3.0 Madisyn magnet is performed through the brain. Stud y is performed within 24 hours of arrival to the hospital. The craniovertebral junction is normal. The pituitary is normal. Diffusion-weighted imaging is performed. No abnormal hyperintensity is present to suggest an acute i ntracranial infarct or acute ischemic change. Old watershed infarct on the left is present. There are scattered punctate areas of hyperintensity on T2 and Inversion Recovery weighted sequences which are non-specific but can be related to chronic white matter microvascular ischemic changes. Ventricles and sulci are appropriate for the patient age. Following contrast, no abnormal enhancement is evident. IMPRESSION: 1. Old left watershed region infarct. 2. Scattered nonspecific periventricular white matter ischemic type changes
[2023-10-09] MEDS: ATORVASTATIN 80 MG TAB PO SCH (22:39)
[2023-10-10 06:14] VITALS: RESP 16
[2023-10-10 08:04] VITALS: BP 117/69; PULSE 75; TEMP 98.1
[2023-10-10] MEDS: ASPIRIN 81 MG PO SCH (09:41)
[2023-10-10 10:31] LABS: Basophils # (A) 0.03 X 10*3/uL (0.00-0.10); Basophils % (A) 0.4 %; Eosinophils # (A) 0.31 X 10*3/uL (0.04-0.35); Eosinophils % (A) 3.9 %; HCT 42.3 % (37.2-46.3); HGB 13.6 g/dL (12.0-15.0); Lymphocytes # (A) 1.67 X 10*3/uL (0.90-5.00); Lymphocytes % (A) 21.2 %; MCH 29.7 pg (27.0-32.0); MCHC 32.2 g/dL (32.0-37.0); MCV 92.4 FL (80.0-97.0); Mean Platelet Volume 9.2 FL (9.5-12.2); Monocytes % (A) 10.1 %; NRBC Per 100 WBC 0 X 10*3/uL (0.00-0.01); Neutrophils # (A) 5.05 X 10*3/uL (1.80-7.70); Platelet Count 211 X 10*3/uL (140-440); RBC 4.58 X 10*6/uL (4.10-5.20); RDW 12.9 % (11.5-14.5); WBC 7.89 X 10*3/uL (4.50-10.00)
[2023-10-10 10:43] LABS: ALT 16 U/L (8-44); AST 21 U/L (13-35); Albumin 3.7 g/dL (3.8-4.9); Albumin/Globulin Ratio 1.76 Ratio (1.60-3.17); Alkaline Phosphatase 89 U/L (41-126); BUN/Creat Ratio 18.67 Ratio (12.00-20.00); Blood Urea Nitrogen 16.8 mg/dL (9.0-27.0); Calcium 8.6 mg/dL (8.7-10.3); Carbon Dioxide 24.3 mmol/L (21.6-31.8); Chloride 108 mmol/L (96-109); Globulin 2.1 g/dL (1.6-3.3); Glucose 120 mg/dL (70-110); Potassium 4.3 mmol/L (3.5-5.5); Sodium 141 mmol/L (135-145); Total Bilirubin 0.3 mg/dL (0.3-1.2); Total Protein 5.8 g/dL (6.2-8.2)
--- NOTE | 2023-10-10 12:48 | CA ---
Transthoracic Echo Report Name: Nohemy Kahn Age: 62 Gender: F : 1960 Exam Date: 10/09/2023 14:56 Exam Location: [facility] Ht (in): 64 Wt (lb): 180 Ordering Physician: Frank Moscoso MD Attending/Referring Phys: Rag Washer Amara Sharma RDCS Procedure CPT: Indications: stroke Cardiac Hx: Technical Quality: Fair Contrast 1: Agitated Saline Total Dose (mL): Contrast 2: Total Dose (mL): MEASUREMENTS (Male / Female) Normal Values 2D ECHO LV Diastolic Diameter PLAX 4.3 cm 4.2 - 5.9 / 3.9 - 5.3 cm LV Systolic Diameter PLAX 1.9 cm IVS Diastolic Thickness 1.1 cm 0.6 - 1.0 / 0.6 - 0.9 cm LVPW Diastolic Thickness 1.1 cm 0.6 - 1.0 / 0.6 - 0.9 cm LV Relative Wall Thickness 0.5 RV Internal Dim ED PLAX 2.4 cm LVOT Diameter 1.8 cm LA Systolic Diameter LX 5.0 cm 3.0 - 4.0 / 2.7 - 3.8 cm LV Diastolic Volume MOD BP 41.8 cm??? 67 - 155 / 56 - 104 cm??? LV Systolic Volume MOD BP 13.9 cm??? - 58 / 19 - 49 cm??? LV Ejection Fraction MOD BP 66.8 % >= 55 % LV Cardiac Index MOD BP 1030.5 cm???/min???m??? LV Diastolic Volume MOD 4C 49.5 cm??? LV Systolic Volume MOD 4C 14.1 cm??? LV Ejection Fraction MOD 4C 71.5 % LV Cardiac Index MOD 4C 1308.5 cm???/min???m??? LV Diastolic Length 4C 7.1 cm LV Systolic Length 4C 5.8 cm LV Diastolic Volume MOD 2C 35.3 cm??? LV Systolic Volume MOD 2C 13.4 cm??? LV Ejection Fraction MOD 2C 62.0 % LV Cardiac Index MOD 2C 808.4 cm???/min???m??? LV Diastolic Length 2C 7.1 cm LV Systolic Length 2C 6.0 cm LA Volume 60.7 cm??? 18 - 58 / 22 - 52 cm??? LA Volume Index 31.1 cm???/m??? 16 - 28 cm???/m??? M-MODE Aortic Root Diameter MM 2.9 cm LA Systolic Diameter MM 4.8 cm LA Ao Ratio MM 1.6 AV Cusp Separation MM 1.8 cm DOPPLER AV Peak Velocity 204.0 cm/s AV Peak Gradient 16.6 mmHg AV Mean Velocity 146.3 cm/s AV Mean Gradient 9.5 mmHg AV Velocity Time Integral 49.7 cm LVOT Peak Velocity 104.8 cm/s LVOT Peak Gradient 4.4 mmHg LVOT Velocity Time Integral 26.0 cm LVOT Stroke Volume 67.0 cm??? LVOT Stroke Volume Index 35.8 ml/m??? LVOT Cardiac Index 2477.5 cm???/min???m??? AV Area Cont Eq vti 1.3 cm??? AV Area Cont Eq pk 1.3 cm??? MV Area PHT 2.5 cm??? Mitral E Point Velocity 92.3 cm/s Mitral A Point Velocity 109.0 cm/s Mitral E to A Ratio 0.8 MV Deceleration Time 302.4 ms TR Peak Velocity 265.7 cm/s TR Peak Gradient 28.2 mmHg Right Ventricular Systolic Press 32.5 mmHg FINDINGS Left Ventricle Left ventricular ejection fraction is estimated at 55-60 %. Mildly increased septal wall thickness. Mildly increased posterior wall thickness. No obvious regional wall motion abnormalities. Left ventricular cavity size normal. Right Ventricle Normal right ventricular size and function. Right ventricular systolic pressure within normal limits. Right Atrium Mild right atrial dilatation. Negative agitated saline bubble study for right to left shunt. Left Atrium Mildly increased left atrial volume. Mitral Valve Structurally normal mitral valve. Trace mitral regurgitation. Aortic Valve Trileaflet aortic valve. Mild aortic stenosis with a peak gradient of 16mmHg and a mean gradient of 9.5mmHg. Tricuspid Valve Structurally normal tricuspid valve. Mild tricuspid regurgitation. Pulmonic Valve Structurally normal pulmonic valve. Trace pulmonic regurgitation. No pulmonic stenosis. Pericardium No pericardial or pleural effusion. Aorta Normal size aortic root and proximal ascending aorta. CONCLUSIONS Left ventricular ejection fraction 55-60% Mildly increased left ventricular wall thickness RVSP 32 Negative bubble study Mild aortic stenosis Mild tricuspid regurgitation No pericardial effusion Previewed by: Dr. Chan Seals DO (Electronically Signed) Final Date: 10 October 2023 12:47
--- NOTE | 2023-10-10 16:39 | P.PN ---
Subjective Progress Note Date: 10/10/23 I am following up with the patient and she feels her dizziness is drastically better today compared to initial presentation. Denies of any new neurological issues. Objective - Vital Signs Vital signs: Vital Signs Temp 98.1 F 10/10/23 07:20 Pulse 75 10/10/23 07:20 Resp 16 10/10/23 07:20 BP 117/69 10/10/23 07:20 Pulse Ox 95 10/10/23 07:20 FiO2 Intake & Output 10/09/23 10/10/23 10/10/23 18:59 06:59 18:59 Intake Total 59 Balance 59 Weight 81.647 kg Intake: Oral 59 Other: Voiding Method Toilet - Exam GENERAL: The patient is lying in bed and is not in acute distress. NEUROLOGICAL: Higher mental function: The patient is awake, alert, oriented to self, place and time. Patient is following commands. No aphasia and no neglect. Cranial nerves: The pupils are round, equal and reactive to light and accommodation. Visual butler are full to confrontation throughout. Extraocular movement is intact no nystagmus is noted. Facial sensation is normal to touch throughout. The facial strength is normal throughout. Hearing is moderately decreased bilaterally to hand rub. Tongue is midline and moved [id number] without any difficulty. No dysarthria is noted. Shoulder shrug is normal bilaterally. Motor: The strength is 5 over 5 throughout. Normal tone and bulk. Cerebellum: Normal finger to nose heel to mari bilaterally. Sensation: Sensation is normal to touch throughout. Reflexes (right/left): 2+ throughout. Plantars are downgoing bilaterally. Some of the workup during this hospital visit consisted of: Hemoglobin A1c 6.9 Lipid panel is triglyceride 142, cholesterol is 123, LDL is 55 and HDL is 39. Sodium is 136, calcium is 9.0. CT of the head is reported as no acute intracranial hemorrhage or midline shift. In the body of the report it is mentioned the patient has old infarct in the left parietal lobe. I personally reviewed the CT and agree with the report. CT angiography of the head and neck is reported as hemodynamically significant stenosis proximal ICA with estimated 60% diameter and narrowing and overall diminished flow in the left left ICA versus opposite right side. No aneurysm or large vessel occlusion at the level of wellness. In the body with the report is mentioned that moderate to severe plaque left carotid bulb extends into the proximal left internal carotid artery with significant stenosis. MRI of the brain is reported as old left watershed region infarct. Scattered nonspecific periventricular white matter type changes. I personally reviewed the MRI and agree the patient has an old infarct on the left side there is no acute or subacute process. 2D echo was reported as left ventricular ejection fraction 55 to 60%. Mild increased left ventricular wall thickness. Negative bubble study. - Labs CBC & Chem 7: 10/10/23 06:45 10/10/23 06:45 Labs: Abnormal Lab Results - Last 24 Hours (Table) 10/09/23 10/10/23 10/10/23 Range/Units 05:35 06:45 06:45 MPV 9.2 L (9.5-12.2) FL Glucose 120 H (70-110) mg/dL Calcium 8.6 L (8.7-10.3) mg/dL Total Protein 5.8 L (6.2-8.2) g/dL Albumin 3.7 L (3.8-4.9) g/dL HDL Cholesterol 39.50 L (40.00-60.00) mg/dL Assessment and Plan Assessment: This is a 62-year-old woman who presents to the hospital because of dizziness upon waking up at 3:00 in the morning and last normal was about close to 10 PM yesterday. He also had nausea. She had a recent pneumonia and received antib iotic in July 2023. She feels her nausea and dizziness is somewhat better compared to initial presentation. CT of the head is negative for any acute or subacute stroke. CT angiography shows severe left ICA/ carotid bulb artery stenosis Acute vertigo: Is peripheral. MRI Brain is negative for acute or subacute process--symptoms is improving Severe left ICA/ carotid bulb artery stenosis on CTA and I feel symptomatic that could be culprit of her old stroke. Old stroke on the left parietal on CT head. Patient is now aware of history of stroke. Underlying history of hypertension Hyperlipidemia New onset diabetes mellitus and hemoglobin A1c 6.9. Plan: Patient was given aspirin 325 mg once in the ED. I resumed her home dose of aspirin 81 mg daily. I started the patient on Lipitor 80 mg nightly because of her left carotid stenosis/plaque. She received meclizine 25 mg once as well as Reglan 5 mg and IV fluids. She started on 25 mg of meclizine 3 times daily as needed and I change it to scheduled and to be on it for 7 days and after that as needed Vascular surgery team is consulted for the left ICA stenosis. The patient to follow-up with vascular surgery as an outpatient. Consulted PT and OT Patient continues to have further vertigo recommend the patient follow-up with ENT as well as vestibular rehab therapy. Will defer the rest of the medical management to primary and other specialist DVT prophylaxis the patient is on subcu heparin Commend the patient to follow-up with a neurologist as an outpatient within 3 to 4 weeks. Plan discussed with the patient and the primary team nurse practitioner There is no further neurological workup. Time with Patient: Less than 30
== END 2023-10-10 12:24 | disposition home or self-care (01) ==
LOC: EC 04:17 → 6NMEDSUR 06:33
PROVIDERS: ADMIT Hospitalist; ATTEND Hospitalist
DX: R42 Dizziness and giddiness (principal); I65.22 Occlusion and stenosis of left carotid artery; I10 Essential (primary) hypertension; E78.5 Hyperlipidemia, unspecified; E11.9 Type 2 diabetes mellitus without complications; E66.9 Obesity, unspecified; Z68.30 Body mass index [BMI] 30.0-30.9, adult; Z86.73 Personal history of transient ischemic attack (TIA), and cerebral infarction without residual deficits; Z79.82 Long term (current) use of aspirin; Z79.899 Other long term (current) drug therapy; Z79.84 Long term (current) use of oral hypoglycemic drugs
CPT/HCPCS: 96376; 96372 ×3; 96361; 96374; 96375; 99285; 36415; 93005; 93306; 97162; 80061; 80053 ×2; 83605; 84484; 85025 ×2; 85610; 85730; 81003; 83036; 71045; 70496; 70450; 70498; 70553; G0378 ×2; J1200; J1644 ×2; J2765; Q9967; A9585; J2470 ×2